=== PATIENT | female | born 2000 | race Hispanic/Latino ===

== ENCOUNTER 2021-02-23 09:29 | Emergency (ER) | payer BC ==
[2021-02-23 11:16] LABS: Urine Blood Negative (Negative); Urine Glucose Negative (Negative); Urine Protein Negative (Negative)
[2021-02-23 11:21] LABS: Absolute Lymphocytes (CBC) 2.4 K/uL (0.7-4.9); Basophils % 0.6 % (0-1.3); Hematocrit 39.6 % (36.0-45.0); Lymphocytes % 33.6 % (15.3-44.8); MPV 7.6 fL (7.6-11.3); RBC Red Blood Cell Count 4.59 M/uL (3.86-4.86)
[2021-02-23] MEDS ORDERED: METOCLOPRAMIDE 10 MG/2mL INJ ONE ×2 (11:26→13:22)
[2021-02-23] MEDS ORDERED: DIPHENHYDRAMINE 50 MG/ML VIAL ONE (11:27)
[2021-02-23] MEDS ORDERED: NA CHLORIDE 0.9% 500 ML ONE (11:27)
[2021-02-23 11:34] LABS: BUN Blood Urea Nitrogen 8 mg/dL (7-18); Bicarbonate 26 mmol/L (21-32); Glucose Level 96 mg/dL (74-106); Potassium 3.6 mmol/L (3.5-5.1); Sodium Level 140 mmol/L (136-145)
--- NOTE | 2021-02-23 11:37 | RAD REPORT ---
EXAM DESCRIPTION: CT - Head Brain Wo Cont - 02/23/2021 11:27 am CLINICAL HISTORY: Headache COMPARISON: Head angio dated 02/23/2021 TECHNIQUE: Axial 5 mm thick images of the head were obtained without IV contrast. All CT scans are performed using dose optimization technique as appropriate and may include automated exposure control or mA/KV adjustment according to patient size. FINDINGS: No intracranial hemorrhage, mass, edema or shift of mid-line structures. No acute infarcti on changes seen. No abnormal extra-axial fluid collections. Ventricles are normal. Mastoid air cells and visualized portions of the paranasal sinuses are clear. No acute bony findings. IMPRESSION: Negative non-contrast CT head examination.
--- NOTE | 2021-02-23 11:38 | RAD REPORT ---
EXAM DESCRIPTION: CT - Head angio - 02/23/2021 11:28 am CLINICAL HISTORY: HEADACHE TECHNIQUE: During dynamic enhancement using nonionic IV contrast, axial 1 millimeter thick images of the head were obtained. Sagittal and axial reconstruction images were generated using MIP technique and reviewed. All CT scans are performed using dose optimization technique as appropriate and may include automated exposure control or mA/KV adjustment according to patient size. COMPARISON: CT head same date FINDINGS: No aneurysm or vascular malformation identified. Major venous sinuses are patent. No stenosis, named branch occlusion, vasculitis or other significant vascular finding identifiable. IMPRESSION: Negative CT angio head examination.
--- NOTE | 2021-02-23 11:41 | RAD REPORT ---
EXAM DESCRIPTION: CT - Neck Angio - 02/23/2021 11:28 am CLINICAL HISTORY: HEADACHE TECHNIQUE: During dynamic enhancement using nonionic IV contrast, axial 2 mm thick images of the nec k were obtained. Sagittal and axial reconstruction images were generated using MIP technique and revi ewed. All CT scans are performed using dose optimization technique as appropriate and may include automated exposure control or mA/KV adjustment according to patient size. COMPARISON: CT head same date, CT angio head same date FINDINGS: No aneurysm or vascular malformation identified. No carotid or vertebral dissection. No aortic arch or great vessel origin abnormality seen. Patient has normal variant bovine configurati on of the arch. Vertebral artery origins unremarkable as well. No stenosis, vasculitis or other signi ficant carotid artery finding. Right internal carotid artery is mildly tortuous. No focal abnormality of either vertebral artery. Basilar artery is normal. IMPRESSION: Negative CT angio neck examination for acute or significant finding.
[2021-02-23] MEDS ORDERED: dexAMETHasone 10 MG/ML VIAL ONE (13:22)
--- NOTE | 2021-02-23 14:22 | EDPHYS ---
Physician Documentation [facility] Name: Alina Agarwal Age: 20 yrs Sex: Female : 2000 Arrival Date: 02/23/2021 Time: 09:33 Bed 5 Private MD: ED Physician Thomas Ponce HPI: 02/23 11:12 This 20 yrs old Female presents to ER via Ambulatory with complaints of jmm Migraine. 11:12 The patient complains of pain to the forehead, right lutheran and left lutheran. Onset: The jmm symptoms/episode began/occurred gradually, 2 day(s) ago. Associated signs and symptoms: Pertinent positives: light sensitivty. This is a 20 year old with no know chronic medical conditions that presents to the ED with complaints of frontal headache beginning approx 2 days ago. Symptoms are alleviated after rest. Patient states having light sensitivity, worse when closing her yes. Denies fever. . 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 - Social history:: Smoking status: Patient denies any tobacco usage or history of. ROS: 11:12 Constitutional: Negative for fever, chills, and weight loss, Cardiovascular: Negative jmm for chest pain, palpitations, and edema, Respiratory: Negative for shortness of breath, cough, wheezing, and pleuritic chest pain. 11:12 Neuro: Positive for headache. 11:12 All other systems are negative. Exam: 11:12 Constitutional: This is a well developed, well nourished patient who is awake, alert, jmm and in no acute distress. Head/Face: atraumatic. Eyes: EOMI, no conjunctival erythema appreciated ENT: Moist Mucus Membranes Neck: Trachea midline, Supple Chest/axilla: Normal chest wall appearance and motion. Cardiovascular: Regular rate and rhythm. No edema appreciated Respiratory: Normal respirations, no respiratory distress appreciated Abdomen/GI: Non distended, soft Back: Normal ROM Skin: General appearance color normal MS/ Extremity: Moves all extremities, no obvious deformities appreciated, no edema noted to the lower extremities Neuro: Awake and alert, normal gait Psych: Behavior is normal, Mood is normal, Patient is cooperative and pleasant Vital Signs: 09:52 Pulse 81; Resp 15; Pulse Ox 97% ; Weight 86.18 kg; Height 4 ft. 11 in. (149.86 cm); ss Pain 8/10; 09:54 BP 156 / 93; Temp 97.8(TE); ss 10:54 BP 164 / 80; Pulse 80; Resp 18; Pulse Ox 100% on R/A; ld1 11:55 BP 158 / 86; Pulse 82; Resp 18; Pulse Ox 100% on R/A; ld1 12:30 BP 117 / 84; Pulse 81; Resp 18; Pulse Ox 100% on R/A; hb 13:51 BP 122 / 83; Pulse 81; Resp 18; Pulse Ox 100% on R/A; hb 14:36 BP 126 / 82; Pulse 86; Resp 18; Pulse Ox 100% on R/A; ld1 09:52 Body Mass Index 38.37 (86.18 kg, 149.86 cm) MDM: 11:09 Patient medically screened. roberta 14:20 Data reviewed: vital signs, nurses notes. Counseling: I had a detailed discussion with lisa the patient and/or guardian regarding: the historical points, exam findings, and any diagnostic results supporting the discharge/admit diagnosis, lab results, radiology results, the need for outpatient follow up, to return to the emergency department if symptoms worsen or persist or if there are any questions or concerns that arise at home. ED course: DELGADO relived in the ED. CTA negative. I do not suspect SAH or meningitis. Patient is otherwise given strict return precautions. Patient understood and agrees with the plan of care. . 02/23 10:56 Order name: CBC with Diff; Complete Time: 11:35 [facility] 02/23 10:56 Order name: BMP; Complete Time: 11:35 [facility] 02/23 10:57 Order name: CT Head Brain wo Cont; Complete Time: 11:53 [facility] 02/23 10:57 Order name: CT Head Angio; Complete Time: 11:53 [facility] 02/23 11:16 Order name: Urine Dipstick-Ancillary; Complete Time: 11:35 [facility] 02/23 11:40 Order name: CREATININE WHOLE BLOOD; Complete Time: 11:53 [facility] 02/23 10:57 Order name: CT Neck Angio; Complete Time: 11:53 [facility] Administered Medications: 11:09 Drug: diphenhydrAMINE 12.5 mg Route: IVP; Site: left antecubital; tw2 11:54 Follow up: Response: No adverse reaction ld1 11:34 Drug: NS 0.9% 500 ml Route: IV; Rate: bolus; Site: left antecubital; ld1 11:53 Follow up: Response: No adverse reaction; IV Status: Completed infusion ld1 11:34 Drug: Reglan (metoCLOPramide) 10 mg Route: IVP; Site: left antecubital; ld1 11:53 Follow up: Response: No adverse reaction ld1 13:09 Drug: Reglan (metoCLOPramide) 10 mg Route: IVP; Site: left antecubital; hb 13:09 Drug: Decadron - Dexamethasone 10 mg Route: IVP; Site: left antecubital; hb Disposition: 02/24 08:00 Co-signature as Attending Physician, Thomas Ponce MD I agree with the assessment and roberta plan of care. Disposition: 02/23/21 14:21 Discharged to Home. Impression: Headache. - Condition is Stable. - Discharge Instructions: Migraine Headache. - Medication Reconciliation Form, Thank You Letter, Antibiotic Education, Prescription Opioid Use, Work release form form. - Follow up: Private Physician; When: 2 - 3 days; Reason: Recheck today's complaints, Continuance of care, Re-evaluation by your physician. Signatures: Dispatcher [employer] [facility] Thomas Ponce MD MD cha Mickail, Joel, PA PA Allyson Burrell RN RN ss Baxter, Heather, RN RN Peace Henderson RN RN tw2 Scarlett Norwood RN RN ld1 Corrections: (The following items were deleted from the chart) 02/23 14:37 14:21 02/23/2021 14:21 Discharged to Home. Impression: Headache. Condition is Stable. ld1 Forms are Work release form, Medication Reconciliation Form, Thank You Letter, Antibiotic Education, Prescription Opioid Use. Follow up: Private Physician; When: 2 - 3 days; Reason: Recheck today's complaints, Continuance of care, Re-evaluation by your physician. jmm
--- NOTE | 2021-02-23 14:22 | ER ---
Nurse's Notes [facility] Name: Alina Agarwal Age: 20 yrs Sex: Female : 2000 Arrival Date: 02/23/2021 Time: 09:33 Bed 5 Private MD: Diagnosis: Headache Presentation: 02/23 09:52 Chief complaint: Patient states: "I've had a migraine since Monday.". Coronavirus ss screen: Client denies travel out of the [place] in the last 14 days. Ebola Screen: Patient denies exposure to infectious person. Patient denies travel to an Ebola-affected area in the 21 days before illness onset. Initial Sepsis Screen: Does the patient meet any 2 criteria? No. Patient's initial sepsis screen is negative. Does the patient have a suspected source of infection? No. Patient's initial sepsis screen is negative. Risk Assessment: Do you want to hurt yourself or someone else? Patient reports no desire to harm self or others. Onset of symptoms was February 19, 2021. 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 - Social history:: Smoking status: Patient denies any tobacco usage or history of. Screenin:04 Abuse screen: Denies threats or abuse. Denies injuries from another. Nutritional ld1 screening: No deficits noted. Tuberculosis screening: No symptoms or risk factors identified. Fall Risk IV access (20 points). Total Carballo Fall Scale indicates No Risk (0-24 pts). Assessment: 11:04 General: Appears in no apparent distress. comfortable, Behavior is calm, cooperative, ld1 appropriate for age. Pain: Complains of pain in right anabaptist and left anabaptist Pain does not radiate. Pain currently is 9 out of 10 on a pain scale. Quality of pain is described as tingling, Pain began 2-3 days ago. Is continuous. Neuro: Level of Consciousness is awake, alert, obeys commands, Oriented to person, place, time, situation, Appropriate for age. Cardiovascular: Capillary refill < 3 seconds Patient's skin is warm and dry. Respiratory: Airway is patent Respiratory effort is even, unlabored, Respiratory pattern is regular, symmetrical. GI: Abdomen is flat, non-distended. : No signs and/or symptoms were reported regarding the genitourinary system. EENT: No signs and/or symptoms were reported regarding the EENT system. Derm: No signs and/or symptoms reported regarding the dermatologic system. Musculoskeletal: No signs and/or symptoms reported regarding the musculoskeletal system. 11:54 Reassessment: Patient appears in no apparent distress at this time. No changes from ld1 previously documented assessment. Patient is alert, oriented x 3, equal unlabored respirations, skin warm/dry/pink. 12:35 Reassessment: Patient appears in no apparent distress at this time. Patient and/or hb family updated on plan of care and expected duration. Pain level reassessed. Patient is alert, oriented x 3, equal unlabored respirations, skin warm/dry/pink. 13:09 Reassessment: Patient appears in no apparent distress at this time. Patient and/or hb family updated on plan of care and expected duration. Pain level reassessed. Patient is alert, oriented x 3, equal unlabored respirations, skin warm/dry/pink. 13:51 Reassessment: Patient appears in no apparent distress at this time. No changes from hb previously documented assessment. Patient and/or family updated on plan of care and expected duration. Pain level reassessed. Patient is alert, oriented x 3, equal unlabored respirations, skin warm/dry/pink. 14:36 Reassessment: Patient appears in no apparent distress at this time. No changes from ld1 previously documented assessment. Patient and/or family updated on plan of care and expected duration. Pain level reassessed. Patient is alert, oriented x 3, equal unlabored respirations, skin warm/dry/pink. Vital Signs: 09:52 Pulse 81; Resp 15; Pulse Ox 97% ; Weight 86.18 kg; Height 4 ft. 11 in. (149.86 cm); ss Pain 8/10; 09:54 BP 156 / 93; Temp 97.8(TE); ss 10:54 BP 164 / 80; Pulse 80; Resp 18; Pulse Ox 100% on R/A; ld1 11:55 BP 158 / 86; Pulse 82; Resp 18; Pulse Ox 100% on R/A; ld1 12:30 BP 117 / 84; Pulse 81; Resp 18; Pulse Ox 100% on R/A; hb 13:51 BP 122 / 83; Pulse 81; Resp 18; Pulse Ox 100% on R/A; hb 14:36 BP 126 / 82; Pulse 86; Resp 18; Pulse Ox 100% on R/A; ld1 09:52 Body Mass Index 38.37 (86.18 kg, 149.86 cm) ED Course: 09:33 Patient arrived in ED. rg4 09:54 Triage completed. ss 09:54 Arm band placed on right wrist. ss 10:27 Trae Rojas PA is PHCP. m 10:27 Thomas Ponce MD is Attending Physician. m 10:50 Scarlett Norwood RN is Primary Nurse. ld1 11:04 Patient has correct armband on for positive identification. Placed in gown. Bed in low ld1 position. Call light in reach. Pulse ox on. NIBP on. Door closed. Noise minimized. Warm blanket given. 11:04 No provider procedures requiring assistance completed. ld1 11:10 Initial lab(s) drawn, sent to lab. Inserted saline lock: 20 gauge in left Blood kj1 collected. 11:27 CT Head Brain wo Cont In Process Unspecified. EDMS 11:28 CT Head Angio In Process Unspecified. EDMS 11:28 CT Neck Angio In Process Unspecified. EDMS 14:37 intact, bleeding controlled, No redness/swelling at site. ld1 Administered Medications: 11:09 Drug: diphenhydrAMINE 12.5 mg Route: IVP; Site: left antecubital; tw2 11:54 Follow up: Response: No adverse reaction ld1 11:34 Drug: NS 0.9% 500 ml Route: IV; Rate: bolus; Site: left antecubital; ld1 11:53 Follow up: Response: No adverse reaction; IV Status: Completed infusion ld1 11:34 Drug: Reglan (metoCLOPramide) 10 mg Route: IVP; Site: left antecubital; ld1 11:53 Follow up: Response: No adverse reaction ld1 13:09 Drug: Reglan (metoCLOPramide) 10 mg Route: IVP; Site: left antecubital; hb 13:09 Drug: Decadron - Dexamethasone 10 mg Route: IVP; Site: left antecubital; hb Outcome: 14:21 Discharge ordered by MD. gonzalez 14:37 Discharged to home ambulatory. ld1 14:37 Condition: stable 14:37 Discharge instructions given to patient, family, Instructed on discharge instructions, follow up and referral plans. Demonstrated understanding of instructions, follow-up care. 14:37 Patient left the ED. ld1 Signatures: Dispatcher [employer] EDMS Trae Rojas PA PA jmm Smirch, Shelby, RN RN ss Soniya Langford RN RN hb Wise, Tara, RN RN tw2 [place] [facility] 4 Airam Krueger 1 Scarlett Norwood RN RN ld1
[2021-02-23 15:04] VITALS: TEMP 97.8
[2021-02-23 15:05] VITALS: O2SAT 100
[2021-02-23 15:11] VITALS: BP 126/82
== END 2021-02-23 14:37 | disposition home or self-care (01) ==
LOC: ER 09:29
DX: R51.9 Headache, unspecified (principal)
CPT/HCPCS: 85025; 80048; 36415; 82565; 81003; 70450; 70496; 70498; Q9967 ×2; J2765 ×2; J1200; J1100; J7040; 96374; 96375; 99284